=== PATIENT | male | born 1955 | race African-American/Black ===

== ENCOUNTER → 2023-12-10 10:57 | Outpatient (REF) | payer BC, SELFPAY ==
[2023-12-10 12:56] LABS: Blood Urea Nitrogen 18 mg/dl (9-20); Calcium 9.8 mg/dl (8.4-10.2); Carbon Dioxide 34 mmol/L (22-30); Chloride 99 mmol/L (98-107); Glucose 104 mg/dl (70-99); HDL Cholesterol 42 mg/dl; LDL Cholesterol, Calculated 128 mg/dl; Potassium 3.2 mmol/L (3.5-5.1); Sodium 143 mmol/L (135-145); Total Cholesterol 191 mg/dl (50-199); Triglyceride 105 mg/dl (10-149); Very Low Density Lipoprotein 21 mg/dl (0-30); eGFR > 60.00
== END ==
LOC: REG 10:57
PROVIDERS: ATTENDING PHYSICIAN Internal Medicine Cardiovascular Disease; FAMILY PHYSICIAN Family Medicine
DX: I10 Essential (primary) hypertension (principal); E78.00 Pure hypercholesterolemia, unspecified
CPT/HCPCS: 36415; 80048; 80061

== ENCOUNTER → 2024-02-13 09:20 | Outpatient (REF) | payer BC, SELFPAY ==
[2024-02-13 10:44] LABS: ALT (SGPT) 26 U/L (0-50); AST (SGOT) 37 U/L (17-59); Albumin 4.5 g/dl (3.5-5.0); Alkaline Phosphatase 68 U/L (38-126); Blood Urea Nitrogen 17 mg/dl (9-20); Calcium 9.8 mg/dl (8.4-10.2); Carbon Dioxide 35 mmol/L (22-30); Chloride 99 mmol/L (98-107); Glucose 121 mg/dl (70-99); HDL Cholesterol 39 mg/dl; LDL Cholesterol, Calculated 108 mg/dl; Potassium 3.7 mmol/L (3.5-5.1); Sodium 143 mmol/L (135-145); Total Bilirubin 0.6 mg/dl (0.2-1.3); Total Cholesterol 174 mg/dl (50-199); Total Protein 7.5 g/dl (6.3-8.2); Triglyceride 138 mg/dl (10-149); Very Low Density Lipoprotein 27 mg/dl (0-30); eGFR > 60.00
== END ==
LOC: REG 09:20
PROVIDERS: ATTENDING PHYSICIAN Internal Medicine Cardiovascular Disease
DX: E78.00 Pure hypercholesterolemia, unspecified (principal); R73.03 Prediabetes; I10 Essential (primary) hypertension
CPT/HCPCS: 36415; 80053; 80061

== ENCOUNTER 2024-04-27 12:36 | Inpatient (IN) | payer BC, SELFPAY ==
[2024-04-27 09:31] VITALS: BP 132/70
--- NOTE | 2024-04-27 10:05 | ED.GENMED ---
History of Present Illness
General
Chief Complaint: Abdominal Symptoms
Source: patient and records (Colonoscopy from 2015 with diverticulosis)
Exam Limitations: none
Time Seen by Provider: 04/27/24 09:35
Nursing documentation reviewed up to this point in time: agreed with
History of Present Illness
History of Present Illness:
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
feels little bit of weakness in his legs when he walks,. Has had a colonoscopy previously, looks like was 2014 with diverticulosis states his father had diverticulitis
Tells me he is loose stools that are bloody filling the toilet bowl
Past History
Past History
ED Past Medical History: Arrthythmia (svt macias), HTN and Other (Diverticulosis); Negative NIDDM
ED Past Surgical History: Cardiac and Orthopedic
Social History
Tobacco: Non-smoker
Alcohol: Occasional
Drug: None
Personal:
Living: with family
Employment: Employed
Phy Exam
Physical Exam
Physical Exam:
Physical Exam
General: no apparent distress, not acutely ill
Neck: No jaundice
Heart: s1/s2 regular rate and rhythm, no murmur. equal radial pulses.
Lungs: no acute respiratory distress. clear bilaterally
Abdomen: Soft not tender
Neuro: alert and oriented. no focal neurological deficits
Skin: no rash
Psychiatric: well kept. interactive and cooperative
Extremities: no edema.
Course
Orders/Labs/Results
Orders:
Orders
04/27/24 09:55
IV Insert/Care/Rem.- Treatment PRN
STOOL [C difficile Antigen & Toxins] Urgent
HAMLET Source: Feces/Stool
Specimen Description:
Date Specimen was Collected: 04/27/24
Time Specimen was Collected: 10:59
04/27/24 09:57
Iohexol [Omnipaque] See Protocol PO NOW STA
04/27/24 09:58
CT Abd/pel W Iv And Oral Contr Urgent
Comment:
Reason For Exam: bloody stool sushi
04/27/24 10:10
Type+Screen Urgent
Complete Blood Count/With Diff Urgent
Comprehensive Metabolic Panel Urgent
PTT Urgent
Prothrombin Time Urgent
04/27/24 10:20
ABO2 Urgent
BBK Wristband Number:
Associate notified that ABO2 has been ordered: [id number]
Date: 04/27/24
Time: 10:21
Unit Leader ID: [id number]
04/27/24 11:03
0.9% Sodium Chloride 1000 ml [Nss] 1,000 ml IV BOLUS
04/27/24 11:04
Stool Culture Urgent
HAMLET Source: Feces/Stool
Specimen Description:
Date Specimen was Collected: 04/27/24
Time Specimen was Collected: 10:59
Abnormal Lab Results
04/27/24
10:10
RBC 3.38 L 10^6/uL
(4.70-6.10)
Hgb 8.2 L g/dL
(13.0-18.0)
Hct 25.0 L %
(39.0-52.0)
MCV 74.0 L fL
(80.0-94.0)
MCH 24.3 L pg
(27.0-31.0)
MCHC 32.8 L g/dL
(33.0-37.0)
RDW 16.0 H %
(11.5-14.5)
Absolute Lymphs (auto) 1.1 L 10^3/uL
(1.2-3.4)
PT 15.1 H Sec
(11.4-14.6)
Potassium 3.0 L mmol/L
(3.5-5.1)
Chloride 97 L mmol/L
(98-107)
BUN 24 H mg/dl
(9-20)
Glucose 148 H mg/dl
(70-99)
Alkaline Phosphatase 35 L U/L
(38-126)
Total Protein 6.1 L g/dl
(6.3-8.2)
04/27/24 10:10
04/27/24 10:10
Vital Signs
Initial and Last Documented VS:
Initial Vital Signs
Temp Pulse Resp BP Pulse Ox
99.0 F 82 16 132/70 99
04/27/24 09:31 04/27/24 09:31 04/27/24 09:31 04/27/24 09:31 04/27/24 09:31
Last Documented Vital Signs
Temp Pulse Resp BP Pulse Ox
99.0 F 82 16 132/70 99
04/27/24 09:31 04/27/24 09:31 04/27/24 09:31 04/27/24 09:31 04/27/24 09:31
MDM/Problems Addressed
Differential Diagnosis Includes:
Diverticular bleed, infectious colitis, conceivably malignancy ischemic colitis
MDM/Problems Addressed:
Painless rectal bleeding
*Radiology
Radiology exam reviewed: radiology read reviewed
*Pulse Oximetry
Patient hypoxic: no
*Jukebox Coin [employer]or Interpretation
Rate: normal
Interpretation: normal
Heart Rate: 78
*Critical Care Note
Total Time (30-74mins, 75-104mins- exclusive of procedures): Not Applicable
Data Reviewed
Review of Other/Old Records Reveals: Operative Reports (Colonoscopy SVT ablation)
Source: patient and records
Update Note
Update Note:
Update differential appears to be diverticular versus infectious from sushi, will check stool cultures check CT H&H
11:20 AM labs are noted H&H down, passed a maroon slightly formed bowel movement,
Drinking for CAT scan at this point I believe will be prudent to admit him to the hospital, consult placed to GI hospitalist notified stool cultures have been sent lastly patient is Anglican will not take a blood transfusion
ED Attending Note
-
Portions of this chart may have been created with voice recognition software.� Occasional wrong word or��sound alike� substitutions may have occurred due to the inherent limitations of voice recognition software.
Discharge Plan
Departure
Patient Disposition: Admit
Date of Disposition: 04/27/24
Time of Disposition: :
Presentation/result/management discussed w/ accepting MD/DO: Hospitalist
Patient with high blood pressure during this ER visit?: No
Condition: Fair
Discharge Problem:
Acute lower GI bleeding
Prescriptions:
No Action
amlodipine 10 MG tablet
10 mg PO DAILY
labetalol 200 MG tablet
200 mg PO DAILY
aspirin 325 MG tablet,delayed release (DR/EC)
162.5 mg PO DAILY
valsartan [Diovan] 320 MG tablet
320 mg PO DAILY
chlorthalidone 25 MG tablet
25 mg PO DAILY
acetaminophen [Tylenol Extra Strength] 500 mg Tablet
1,000 mg PO Q6HPRN PRN (Reason: mild pain)
Prevagen
1 tab PO DAILY
loperamide [Imodium] 2 mg Capsule
2 mg PO Q6HPRN PRN (Reason: diarrhea)
meloxicam 15 mg Tablet
15 mg PO DAILY
ferrous sulfate 325 mg (65 mg iron) Tablet
325 mg PO DAILY
metformin 500 mg Tablet Extended Release 24 Hr
500 mg PO DAILY
coenzyme Q10 [CoQ-10] 100 mg Capsule
100 mg PO DAILY
rosuvastatin 5 mg Tablet
5 mg PO DAILY
Biofreeze (menthol) 5 % Gel
1 ea TOPICAL HS
Referrals:
Walt Smith DO [Family Provider] -
Interventions
Interventions:
*Risk Screen - Suicide Last Done: 04/27/24 09:31
*Neglect/Abuse Screening Last Done: 04/27/24 09:31
IQ-Ybpdfu-[id number] Assessment Last Done: 04/27/24 10:17
Discharge Date and Time
Print Language: BELGIAN
[2024-04-27 10:08] VITALS: BMI 25.5
[2024-04-27] MEDS: OMNIPAQUE 50 ML PO (10:16)
[2024-04-27 10:21] LABS: % Basophils 0.8 % (0-2); % Eosinophils 2.9 % (0-6); % Immature Granulocytes 0.2 % (0-0.5); % Lymphocytes 21.2 % (20.5-51.1); % Monocytes 7.8 % (1.7-9.3); % Neutrophils 67.1 % (42.2-75.2); Absolute Eosinophils 0.2 10^3/uL (0-0.7); Absolute Lymphocytes 1.1 10^3/uL (1.2-3.4); Absolute Monocytes 0.4 10^3/uL (0.1-0.6); Absolute Neutrophils 3.5 10^3/uL (1.4-6.5); Hemoglobin 8.2 g/dL (13.0-18.0); Mean Corp Hgb Conc. 32.8 g/dL (33.0-37.0); Mean Corpuscular Hgb 24.3 pg (27.0-31.0); Mean Platelet Volume 10.2 fL (7.4-10.4); Nucleated Red Blood Cells % 0 % (-); Platelet Count 183 10^3/uL (130-400); Red Blood Cell Count 3.38 10^6/uL (4.70-6.10); White Blood Cell Count 5.1 10^3/uL (4.8-10.8)
[2024-04-27 10:35] LABS: ALT (SGPT) 24 U/L (0-50); APTT 28.7 Sec (23.4-35.0); AST (SGOT) 26 U/L (17-59); Albumin 3.7 g/dl (3.5-5.0); Alkaline Phosphatase 35 U/L (38-126); Blood Urea Nitrogen 24 mg/dl (9-20); Calcium 8.5 mg/dl (8.4-10.2); Carbon Dioxide 30 mmol/L (22-30); Chloride 97 mmol/L (98-107); Estimated Creatinine Clearance 74 ml/min; Glucose 148 mg/dl (70-99); INR 1.14; PT 15.1 Sec (11.4-14.6); Sodium 137 mmol/L (135-145); Total Bilirubin 0.4 mg/dl (0.2-1.3); Total Protein 6.1 g/dl (6.3-8.2); eGFR > 60.00
[2024-04-27 11:43] VITALS: BP 111/66
[2024-04-27] MEDS: NSS 1000 IV (11:46)
[2024-04-27] MEDS: KCL 40 MEQ PO (11:47)
--- NOTE | 2024-04-27 11:53 | CON.GI ---
Addendum entered and electronically signed by Tana Amato DO 04/27/24 15:41:
#Hepatic Steatosis
-suspect 2/2 underlying metabolic disease
-low alkaline phosphatase-- should have this worked up as an outpatient, large ddx (: celiac, hypophosphatais, hypothyroid, multiple myeloma, milk-alkali syndrome, pernicious anemia, vit C deficiency, vit D toxicity, zinc/mag deficiency, Michael's,
starvation, radioactive heavy metals)
#Hepatic cysts
-likely benign
-recommend, nonurgent, outpatient MRI to better characterize these lesions
Original Note:
Consultation
-
Date/Time Consultation Requested: 04/27/24 12.08 pm
Date/Time Consultation Performed: 04/27/24 12.32 Pm
Requesting Provider: José Trammell MD
Performing Provider: Daya Montero MD
Reason for Consultation: Rectal bleeding
Medical History
Chief Complaint / HPI
Chief Complaint: Acute blood loss along rectal bleeding
History of Present Illness:
The patient is a 68 year old male who presented to ER this morning due having bloody diarrhea episodes since Saturday. The patient reported that he ate 3 days old sushi on Saturday and his diarrhea started the following day. The patient reported he
kept having fresh-red colored diarrhea since Saturday until today. He reported having more than 10 episodes of bloody diarrhea on Saturday and about 3 times on Saturday even he stopped eating since Saturday. The patient reported one bowel movement
today and the stool color was dark brown with a very small amount of stool. Patient denied any similar episodes before, denied abdominal/rectal pain, nausea, vomiting. He reported feeling stiffness/can be considered weakness on his legs and had
difficulty with chewing this morning.
Past Medical History
Past Medical History: Arrhythmias (svt macias), HTN and Other (Diverticulosis)
Past Surgical History: Other (Cardiac and Orthopedic)
Social History
Tobacco: Non-Smoker
Alcohol: Occasional
Drug: None
Family History
Family History: Reviewed & Not Pertinent
Allergies / Home Medications
Allergy/AdvReac Type Severity Reaction Status Date / Time
quinapril HCl [From Accupril] Allergy Swelling Verified 04/27/24 09:34
rosuvastatin calcium Allergy Pharmacy Verified 04/27/24 09:34
[From Crestor] to Review
Shellfish *RETIRED-03/04/12 Allergy Itching, Verified 04/27/24 09:34
[Shellfish] watery
eyes,
scratchy
throat
�Medication �Instructions �Recorded
amlodipine 10 mg tablet 10 mg PO DAILY 06/08/11
aspirin 325 mg tablet,delayed 162.5 mg PO DAILY 12/29/14
release
labetalol 200 mg tablet 200 mg PO DAILY 12/29/14
valsartan 320 mg tablet (Diovan) 320 mg PO DAILY 12/29/14
Prevagen 1 tab PO DAILY 05/25/21
acetaminophen 500 mg tablet 1,000 mg PO Q6HPRN PRN mild pain 05/25/21
(Tylenol Extra Strength)
chlorthalidone 25 mg tablet 25 mg PO DAILY 05/25/21
coenzyme Q10 100 mg capsule 100 mg PO DAILY 04/27/24
(CoQ-10)
ferrous sulfate 325 mg (65 mg 325 mg PO DAILY 04/27/24
iron) tablet
loperamide 2 mg capsule 2 mg PO Q6HPRN PRN diarrhea 04/27/24
meloxicam 15 mg tablet 15 mg PO DAILY 04/27/24
menthol 5 % topical gel (Biofreeze 1 ea topical HS right shoulder 04/27/24
(menthol))
metformin 500 mg tablet,extended 500 mg PO DAILY 04/27/24
release 24 hr
rosuvastatin 5 mg tablet 5 mg PO DAILY 04/27/24
Review of Systems
-
All other systems: A 12 pt ROS was Negative except as stated above in HPI
Abdomen/GI: Reports Other (See HPI )
Vital Signs
Temp Pulse Resp BP Pulse Ox
99.0 F 76 16 111/66 97
04/27/24 09:31 04/27/24 11:43 04/27/24 11:43 04/27/24 11:43 04/27/24 11:43
Physical Exam
Exam
General: Well Developed, Well Nourished and No Apparent Distress
HEENT: Normocephalic and Anicteric
Respiratory: Clear
Cardiac: S1/S2 and Regular Rhythm
GI: Soft, Non Tender and Other (some discomfort on upper abdominal area)
Musculoskeletal: No Clubbing, No Cyanosis and No Edema
Skin: Warm and Dry
Neuro: Awake, Alert, Oriented and AO x 3
Psych: Calm
Results
WBC 5.1 10^3/uL (4.8-10.8) 04/27/24 10:10
Hgb 8.2 g/dL (13.0-18.0) L 04/27/24 10:10
Hct 25.0 % (39.0-52.0) L 04/27/24 10:10
MCV 74.0 fL (80.0-94.0) L 04/27/24 10:10
Plt Count 183 10^3/uL (130-400) 04/27/24 10:10
Absolute Neuts (auto) 3.5 10^3/uL (1.4-6.5) 04/27/24 10:10
PT 15.1 Sec (11.4-14.6) H 04/27/24 10:10
INR 1.14 04/27/24 10:10
APTT 28.7 Sec (23.4-35.0) 04/27/24 10:10
Sodium 137 mmol/L (135-145) 04/27/24 10:10
Potassium 3.0 mmol/L (3.5-5.1) L 04/27/24 10:10
Chloride 97 mmol/L (98-107) L 04/27/24 10:10
Carbon Dioxide 30 mmol/L (22-30) 04/27/24 10:10
BUN 24 mg/dl (9-20) H 04/27/24 10:10
Creatinine 1.0 mg/dL (0.7-1.3) 04/27/24 10:10
Calcium 8.5 mg/dl (8.4-10.2) 04/27/24 10:10
Total Bilirubin 0.4 mg/dl (0.2-1.3) 04/27/24 10:10
AST 26 U/L (17-59) 04/27/24 10:10
ALT 24 U/L (0-50) 04/27/24 10:10
Alkaline Phosphatase 35 U/L (38-126) L 04/27/24 10:10
Diagnostic Image Results:
Abd/Pelvis CT 04/27/24:
Prior GI Procedures:
EGD:
Patient reported having an endoscopy years ago due acid reflux and does not remember the time/hospital
Colonoscopy: 02/11/15
Findings:
Two sessile polyps were found in the rectum. The polyps were small in
size. These were biopsied with a cold large-capacity forceps for
histology.
Many small and large-mouthed diverticula were found in the entire colon.
No additional abnormalities were found on retroflexion.
No other significant abnormalities were identified in a careful
examination of the remainder of the colon.
The terminal ileum appeared normal.
Impression: - Two small polyps in the rectum. Biopsied.
- Mild dverticulosis in the entire examined colon.
- The examined portion of the ileum was normal.
Assessment / Plan
-
Impression: The patient is a 68 years old male presented to ER today complaining from bloody stools starting from Saturday.He report no similar previous episode and reports his diarrhea started after he consumed 3 day-waited sushi. His bowel
movements were fresh-red colored with a small amount of stool until today. This morning he had dark colored a very small amount of stool reporting he did not eat anything since Saturday. He has been on aspirin and meloxicam which he took both of them
this morning. The patient had his colonoscopy in 2014 showing many small and large-mouthed diverticula in the entire colon.
Note: The patient is a Jehovah Witness and declined blood product in spite of detailed conversation about consequences of such decline. The patient is AAOx3 and capable of making his own medical decisions.
Assessment/Plan:
#Acute Blood Loss due possibly lower GI bleeding likely due diverticulosis vs enterocolitis vs polyps
-Hgb is 8.2 which is lower from his baseline (12.0)
-Trend hgb Q8 H/ Patient declines Blood transfusion due his zoroastrianism
-Hold ASA and avoid NSAI
-Susceptible for Enterocolitis due consuming stale/raw food (sushi): Stool culture/stool WBC/C-diff was ordered
-Recently started stiffness on legs this morning-GBS? Neurology cons can be considered.
-Abd/Pelvis CT: Moderate diverticular disease within the descending and sigmoid colon
-Colonoscopy/endoscopy can be considered if patient has ongoinf bleeding
-Low possibility for upper GI bleeding /hx of acid reflux/one episode of melena this morning/continue PPI drop
-
-
-
Thank you for consultation and allowing me to participate in the patient's care. Please call the personalized living manager GI physician during the after hours with any questions or concerns.
--- NOTE | 2024-04-27 12:16 | HPS.HSE ---
Family Physician
-
Family Physician: Walt Smith
Chief Complaint
-
rectal bleeding
History of Present Illness
68yo M with PMHx of HTN, OUMOU, DM, HLD came with persistent red blood per rectum with diarrhea, just started to improve to maroon solid stool today. Found anemia to 8.2, Patient ate sushi before diarrhea occured. Hemodynamically stable. 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
Jehovah Witness and declined blood product in spite of detailed conversation about consequences of such decline. was not supportive of his decision, however patient is AAOx3 and competent to make his own medical decisions.
Medical History
Past Medical History
Past Medical History: Reports Other
Additional Past Medical History:
See HPI
Past Surgical History: Reports None
Social History
Tobacco: Non-smoker
Alcohol: Occasional
Drug: None
Family History
Family History: Not pertinent
Allergies / Home Medications
Allergies reflects when Allergies were last updated in [facility].
Home Medications with original date entered in [facility]
Allergy/Medication List:
Allergies
Allergy/AdvReac Type Severity Reaction Status Date / Time
quinapril HCl [From Accupril] Allergy Swelling Verified 04/27/24 09:34
rosuvastatin calcium Allergy Pharmacy Verified 04/27/24 09:34
[From Crestor] to Review
Shellfish *RETIRED-03/04/12 Allergy Itching, Verified 04/27/24 09:34
[Shellfish] watery
eyes,
scratchy
throat
Home Medications
amlodipine 10 mg tablet 10 mg PO DAILY 06/08/11
aspirin 325 mg tablet,delayed release 162.5 mg PO DAILY 12/29/14
labetalol 200 mg tablet 200 mg PO DAILY 12/29/14
valsartan 320 mg tablet (Diovan) 320 mg PO DAILY 12/29/14
Prevagen 1 tab PO DAILY 05/25/21
acetaminophen 500 mg tablet (Tylenol Extra Strength) 1,000 mg PO Q6HPRN PRN mild pain 05/25/21
chlorthalidone 25 mg tablet 25 mg PO DAILY 05/25/21
coenzyme Q10 100 mg capsule (CoQ-10) 100 mg PO DAILY 04/27/24
ferrous sulfate 325 mg (65 mg iron) tablet 325 mg PO DAILY 04/27/24
loperamide 2 mg capsule 2 mg PO Q6HPRN PRN diarrhea 04/27/24
meloxicam 15 mg tablet 15 mg PO DAILY 04/27/24
menthol 5 % topical gel (Biofreeze (menthol)) 1 ea topical HS right shoulder 04/27/24
metformin 500 mg tablet,extended release 24 hr 500 mg PO DAILY 04/27/24
rosuvastatin 5 mg tablet 5 mg PO DAILY 04/27/24
Review of Systems
-
History Source: Patient
A 12 point ROS was completed and negative except as noted: Yes
Abdomen/GI: Reports See HPI
Physical Exam
Vital Signs
Vital Signs
Temp Pulse Resp BP Pulse Ox
99.0 F 76 16 111/66 97
04/27/24 09:31 04/27/24 11:43 04/27/24 11:43 04/27/24 11:43 04/27/24 11:43
Physical Exam
General: No Apparent Distress
HEENT: NormoCephalic, Anicteric and Moist mucous membranes
Respiratory: Clear; No Wheezes, Rales or Rhonchi
Cardiac: S1/S2 and Regular Rhythm; No Murmur
GI: Soft, Non Tender, Non Distended and Normal Bowel Sounds
Musculoskeletal: No Clubbing, No Cyanosis and No Edema
Skin: Warm; No Dry or Rash
Neuro: Awake, Alert, Oriented and AO x 3
Psych: Calm
Laboratory Results
-
04/27/24 10:10
04/27/24 10:10
Laboratory Results
PT 15.1 Sec (11.4-14.6) H 04/27/24 10:10
INR 1.14 04/27/24 10:10
APTT 28.7 Sec (23.4-35.0) 04/27/24 10:10
Total Bilirubin 0.4 mg/dl (0.2-1.3) 04/27/24 10:10
AST 26 U/L (17-59) 04/27/24 10:10
ALT 24 U/L (0-50) 04/27/24 10:10
Alkaline Phosphatase 35 U/L (38-126) L 04/27/24 10:10
Data Reviewed
-
Lab Data: Labs Reviewed by me
Impression/Plan
-
A/P:
#Acute blood loss anemia 2/2 hematochezia
#OUMOU
check anemia w/u
serial H&H, no transfusion consent placed
Since hemodynamically stable- will avoid hemodilution with IVF - use boluses of BP<100/50
Supportive low rate RL infusion while NPO
GI cosnult
CT abd/pelvis pending at the time of admission.
Stop ASA as patient without [place], stents or CVA history
avoid NSAIDs and AC
PPI drip since patient was on meloxicam
#Essential HT
Hold BP meds
#Hypokalemia
2/2 diarrhea
replete and follow
check mg
#Diarrhea, possibly gastroenteritis
No abd pain
CT abd pending
Improving
CHeck C.diff
#HLD
cont home meds
#DM type w with neuropathy
hold Metformin
Accuchecks, Insulin SS, DM diet, when possible
#DJD
stop meloxicam
DVT ppx on SCDs
Full code
I have spent at least 78min reviewing chart, test results, communication with consultants and direct patient care
[2024-04-27 12:47] LABS: Magnesium 1.6 mg/dl (1.6-2.3)
[2024-04-27] MEDS: PROTONIX IV 80 MG IV (13:31)
[2024-04-27] MEDS: PROTONIX 100 IV (13:33)
[2024-04-27] MEDS: NSS (PRESERVATIVE FREE) 20 ML IV (13:33)
[2024-04-27] MEDS: MAGNESIUM SULFATE 50 IV (13:34)
--- NOTE | 2024-04-27 14:18 | EDRN ---
Report tubed 328-1 bed not ready.
[2024-04-27 15:39] VITALS: BP 112/65
[2024-04-27] MEDS: LR 1000 IV (16:16)
[2024-04-27] MEDS: TYLENOL 650 MG PO ×2 (16:17→21:05)
[2024-04-27 16:30] LABS: Glucose - Point of Care 110 mg/dl (70-99)
--- NOTE | 2024-04-27 17:43 | PTCARENOTE ---
pt arrived to unit at 1525 via stretcher from ED, Protonix gtt running. Pt ambulated from hallway to bed w/out assist. VSS. admissions questions and assessment completed by this nurse. pt placed on tele #6 running NSR. pt has outstanding stool
cultures ordered. hat placed in toilet for specimen and pt educated to call when he has BM. pt AAOx3, oriented to unit, call german in reach. LR @60ml/hr started, pt given Tylenol for R shoulder pain. pt states taking Tylenol throughout the day to
help with R shoulder, supposed to have procedure/operation in the next few months.
[2024-04-27 19:20] VITALS: BP 126/75
[2024-04-27 20:08] LABS: Iron 152 ug/dl (49-181); LDH 141 U/L (120-246)
[2024-04-27 20:17] LABS: Percent Saturation 47 % (20-50); Total Iron Binding Capacity 322 ug/dl (261-462)
[2024-04-27 20:59] LABS: Ferritin 56.8 ng/ml (17.9-464.0)
[2024-04-27] MEDS: NSS (PRESERVATIVE FREE) 10 ML IV (21:06)
[2024-04-27] MEDS: PROTONIX IV 40 MG IV (21:06)
[2024-04-27 21:31] LABS: Folate > 20.0 ng/ml (2.76-20); Vitamin B12 597 pg/ml (239-931)
[2024-04-27 23:20] VITALS: BP 124/65
[2024-04-28] VITALS (24 sets, daily range): BP systolic 88–130; BP diastolic 52–92; PULSE 94–104
[2024-04-28 00:06] LABS: Glucose - Point of Care 117 mg/dl (70-99)
[2024-04-28] MEDS: TYLENOL 650 MG PO (04:51)
[2024-04-28] MEDS: LR 1000 IV (05:26)
[2024-04-28 05:59] LABS: Glucose - Point of Care 124 mg/dl (70-99)
[2024-04-28 06:30] LABS: % Basophils 0.5 % (0-2); % Immature Granulocytes 0.3 % (0-0.5); % Lymphocytes 33.8 % (20.5-51.1); % Monocytes 8.5 % (1.7-9.3); % Neutrophils 52.9 % (42.2-75.2); Absolute Eosinophils 0.2 10^3/uL (0-0.7); Absolute Lymphocytes 1.4 10^3/uL (1.2-3.4); Absolute Monocytes 0.3 10^3/uL (0.1-0.6); Absolute Neutrophils 2.1 10^3/uL (1.4-6.5); Hematocrit 24.8 % (39.0-52.0); Hemoglobin 8.1 g/dL (13.0-18.0); Mean Corp Hgb Conc. 32.7 g/dL (33.0-37.0); Mean Corpuscular Hgb 24.3 pg (27.0-31.0); Mean Corpuscular Volume 74.5 fL (80.0-94.0); Mean Platelet Volume 10.1 fL (7.4-10.4); Nucleated Red Blood Cells % 0 % (-); Platelet Count 189 10^3/uL (130-400); Red Blood Cell Count 3.33 10^6/uL (4.70-6.10); Red Cell Dist. Width 16.4 % (11.5-14.5)
[2024-04-28 06:55] LABS: ALT (SGPT) 24 U/L (0-50); AST (SGOT) 30 U/L (17-59); Albumin 3.8 g/dl (3.5-5.0); Alkaline Phosphatase 39 U/L (38-126); Blood Urea Nitrogen 18 mg/dl (9-20); Calcium 8.8 mg/dl (8.4-10.2); Carbon Dioxide 27 mmol/L (22-30); Chloride 103 mmol/L (98-107); Estimated Creatinine Clearance 74 ml/min; Glucose 105 mg/dl (70-99); Sodium 142 mmol/L (135-145); Total Bilirubin 0.5 mg/dl (0.2-1.3); Total Protein 6.4 g/dl (6.3-8.2); eGFR > 60.00
[2024-04-28 06:59] LABS: Potassium 3.3 mmol/L (3.5-5.1)
[2024-04-28 07:44] LABS: Hepatitis C Antibody Negative (Negative)
[2024-04-28] MEDS: KCL 40 MEQ PO (07:55)
[2024-04-28] MEDS: PROTONIX IV 40 MG IV ×2 (07:56→21:19)
[2024-04-28] MEDS: CRESTOR 5 MG PO (07:56)
[2024-04-28] MEDS: NSS (PRESERVATIVE FREE) 10 ML IV ×2 (07:56→21:19)
--- NOTE | 2024-04-28 09:38 | W.PN.GI.CBS2 ---
Today's Communication / Plan
-
-Abd/Pelvis CTA
-Clear Liquid diet
Assessment / Plan
-
Impression: The patient is a 68 years old male presented to ER on 04/27/24 complaining from bloody stools starting from Saturday .He reported no similar previous episode and reported his diarrhea started after he consumed 3 day-waited sushi. His
bowel movements were fresh-red colored with a small amount of stool until yesterday. Yesterday morning he had dark colored a very small amount of stool reporting he did not eat anything since Saturday. This morning he had 2 bloody bowel movements in
large amounts. He has been on aspirin and meloxicam which he took both of them yesterday morning. The patient had his colonoscopy in 2014 showing many small and large-mouthed diverticula in the entire colon.
Note: The patient is a Jehovah Witness and declined blood product in spite of detailed conversation about consequences of such decline on 04/27/24. This morning he was with his and reported he is agreeing having blood transfusion if needed. The
primary care team was informed about it.
Assessment/Plan:
#Acute Blood Loss due possibly lower GI bleeding likely due diverticulosis vs enterocolitis
-Hgb is 8.1 which is lower from his baseline (12.0) and had 2 Bloody BM after his was drawn
-Trend hgb Q8 H/: Patient agrees Blood transfusion if needed
-Blood transfusion is recommended to keep hgb >7
-Abd/Pelvis CTA was ordered due last 2 bloody BM this morning
-Started on clear liquid diet
-Hold ASA and avoid NSAI
-IV iron can be stopped due patient`s agreement to blood transfusion this morning.
-Susceptible for Enterocolitis due consuming stale/raw food (sushi): Stool culture:pending /stool WBC: Rare/ C-diff :toxin negative-antigen positive
-Recently started stiffness on legs yesterday: Denies any weakness, numbness this morning
-Abd/Pelvis CT 04/27/24: Moderate diverticular disease within the descending and sigmoid colon
-Colonoscopy/endoscopy can be considered if patient has ongoing bleeding
-Low possibility for upper GI bleeding /hx of acid reflux/one episode of melena this morning/continue PPI IV BID
-
Subjective
Subjective
Date of Service: April 28, 2024
The patient was seen in his bed with his at bedside. He reported having 2 bloody bowel movements this morning. Denies nausea, vomiting, pain, tenderness on abdominal area.
Objective
Data Reviewed
Laboratory Data:
Laboratory Results
04/28/24 05:36
Laboratory Results
PT 15.1 Sec (11.4-14.6) H 04/27/24 10:10
INR 1.14 04/27/24 10:10
APTT 28.7 Sec (23.4-35.0) 04/27/24 10:10
Magnesium 1.6 mg/dl (1.6-2.3) 04/27/24 10:10
Total Bilirubin 0.5 mg/dl (0.2-1.3) 04/28/24 05:36
AST 30 U/L (17-59) 04/28/24 05:36
ALT 24 U/L (0-50) 04/28/24 05:36
Alkaline Phosphatase 39 U/L (38-126) 04/28/24 05:36
Vital Signs and I&O:
Vital Signs
Temp Pulse Resp BP Pulse Ox
98.5 F 76 16 108/68 97
04/28/24 08:07 04/28/24 08:07 04/28/24 08:07 04/28/24 08:07 04/28/24 08:07
Physical Exam
Physical Exam
HEENT: Anicteric and Moist mucous membranes
Cardiology: Normal Sinus Rhythm, S1 and S2
Pulmonary: Clear
GI: Soft, Non Distended and Non Tender
Extremities: No Edema
Neuro: Non Focal
[2024-04-28 09:49] LABS: Hematocrit 23.5 % (39.0-52.0); Hemoglobin 7.6 g/dL (13.0-18.0)
--- NOTE | 2024-04-28 10:22 | W.PN.HOSP.TC ---
Today's Communication/Plan
-
consent signed - transfuse 2 units PRBC
Increase IVF to 125ml/h
follow CTA
Transfer to IMU
Assessment / Plan
Assessment / Plan
68yo M with PMHx of HTN, OUMOU, DM, HLD came with persistent red blood per rectum with diarrhea, just started to improve to maroon solid stool today. Found anemia to 8.2, Patient ate sushi before diarrhea occured. Hemodynamically stable. 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
A/P:
A/P:
#Acute blood loss symptomatic anemia 2/2 hematochezia
#DIverticulosis
#OUMOU
check anemia w/u
serial H&H, transfuse for symptomatic anemia
IVF
GI cosnult
CT abd/pelvis pending at the time of admission.
Stop ASA as patient without [place], stents or CVA history
avoid NSAIDs and AC
PPI drip since patient was on meloxicam
#Essential HT
Hold BP meds
#Hypokalemia
2/2 diarrhea
replete and follow
check mg
#Diarrhea, possibly gastroenteritis
No abd pain
CT abd without diverticulitis
#HLD
cont home meds
#DM type w with neuropathy
hold Metformin
Accuchecks, Insulin SS, DM diet, when possible
#DJD
stop meloxicam
#Fatty liver
#Liver cysts
outpatient follow up with GI
DVT ppx on SCDs
Full code
I have spent at least 58min reviewing chart, test results, communication with consultants and direct patient care
Anticipated Discharge: > 48 hours
Subjective/Interval History
-
Date of Service: April 28, 2024
Objective Data
-
Labs:
Laboratory Results
04/28/24 04/28/24 04/28/24
05:36 05:36 05:36
WBC 4.0 L
Hgb Cancelled 8.1 L
Hct Cancelled 24.8 L
Plt Count 189
Sodium 142
Potassium 3.3 L
Chloride 103
Carbon Dioxide 27
BUN 18
Creatinine 1.0
Glucose 105 H
Calcium 8.8
Total Bilirubin 0.5
AST 30
ALT 24
Alkaline Phosphatase 39
04/28/24 04/28/24 04/28/24
07:27 09:32 15:27
WBC
Hgb Cancelled 7.6 L Pending
Hct Cancelled 23.5 L Pending
Plt Count
Sodium
Potassium
Chloride
Carbon Dioxide
BUN
Creatinine
Glucose
Calcium
Total Bilirubin
AST
ALT
Alkaline Phosphatase
04/28/24
23:27
WBC
Hgb Pending
Hct Pending
Plt Count
Sodium
Potassium
Chloride
Carbon Dioxide
BUN
Creatinine
Glucose
Calcium
Total Bilirubin
AST
ALT
Alkaline Phosphatase
Vital Signs:
Vital Signs
Temp Pulse Resp BP Pulse Ox
98.5 F 76 16 108/68 97
04/28/24 08:07 04/28/24 08:07 04/28/24 08:07 04/28/24 08:07 04/28/24 08:07
Review of Systems
-
History Source: Patient
All other systems: Reviewed and negative
Neuro: Reports Dizzy
Physical Exam
-
General: Comfortable
HEENT: Moist Mucous Membranes
Skin: Warm
Neuro: Awake, Alert, Oriented and AO x 3
Psych: Calm
[2024-04-28 11:47] LABS: Glucose - Point of Care 147 mg/dl (70-99)
--- NOTE | 2024-04-28 12:28 | CM ---
CM following re: discharge planning.
Reviewed pt's chart, met with pt and pt's spouse at bedside.
Pt is a 68 year old male, admitted with primary dx of GIB.
Pt reports he lives with spouse and 20 year old son in a 2SH, 3 steps to enter, has 2 supportive children. 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
PCP: Walt Smith
Pharmacy: [facility].
D/C plan: home with anticipated no needs. Spouse to transport at discharge.
CM will follow with discharge plan updates as hospitalization progresses
--- NOTE | 2024-04-28 14:00 | PTCARENOTE ---
Received patient from [facility]. Patient AAOx3, able to ambulate to bed. Lungs clear,sp02 99% RA, SR on monitor HR 80's, abdomen with hyperactive sounds. Upon arrival patient had moderate sized bloody stool on commode. Oriented patient
to room and discussed plan of receiving PRBC's.
--- NOTE | 2024-04-28 14:26 | W.PN.UPDATE ---
Update Note
Progress Note Update
Pt with continued bleeding. CTA no SB bleed, limited colon with recent oral contrast, diverticulosis, fatty liver. renal and hepatic cysts. pt agreeable for colonoscopy in am. Dr. Amato updated daughter and I updated family at bedside.
Getting transfusion now. OP follow up for fatty liver.
[2024-04-28 14:27] LABS: Glucose - Point of Care 151 mg/dl (70-99)
[2024-04-28] MEDS: NULYTELY SOLUTION 4 LITERS PO (17:39)
--- NOTE | 2024-04-28 18:00 | PTCARENOTE ---
Patient received 2 units of PRBC's without incident. Started on prep for colonoscopy tomorrow.
[2024-04-28 18:01] LABS: Glucose - Point of Care 126 mg/dl (70-99)
[2024-04-28 21:05] LABS: Glucose - Point of Care 121 mg/dl (70-99)
[2024-04-28 22:03] LABS: Hemoglobin 8.8 g/dL (13.0-18.0)
[2024-04-29] VITALS (8 sets, daily range): BP systolic 118–136; BP diastolic 59–88
[2024-04-29] MEDS: LR 1000 IV ×3 (01:39→18:27)
[2024-04-29] MEDS: LR IV (01:47)
[2024-04-29 05:37] LABS: Glucose - Point of Care 122 mg/dl (70-99)
[2024-04-29 05:39] LABS: Hematocrit 24.9 % (39.0-52.0); Hemoglobin 8.3 g/dL (13.0-18.0)
--- NOTE | 2024-04-29 05:43 | PTCARENOTE ---
Patient did not sleep much. Multiple brown/black/maroon liquid stools d/t colonoscopy prep. Pt was tolerating the prep until he became nauseous around midnight. IVF continue. Up ad stacey to [facility]. Denies any dizziness or lightheadedness. Adequate urine
output. NSR/ST on tele monitor. Call german within reach. Pt calls appropriately.
[2024-04-29] MEDS: CRESTOR 5 MG PO (08:51)
[2024-04-29] MEDS: NSS (PRESERVATIVE FREE) 10 ML IV ×2 (08:51→21:15)
[2024-04-29] MEDS: PROTONIX IV 40 MG IV ×2 (08:51→21:14)
--- NOTE | 2024-04-29 11:32 | W.PN.HOSP.TC ---
Today's Communication/Plan
-
Monitoring 24h for further bleeding and Hgb, if stable - plan to d/c in AM
Restart Valsartan
Assessment / Plan
Assessment / Plan
68yo M with PMHx of HTN, OUMOU, DM, HLD came with persistent red blood per rectum with diarrhea, just started to improve to maroon solid stool today. Found anemia to 8.2, Patient ate sushi before diarrhea occured. Hemodynamically stable. 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
[employer] and declined blood product initially, but on the next day after admission due to continued bleeding and dizziness - was agreeable. S/P 2 units PRBC on 04/28/24, s/p colonoscopy on 04/29/24 with no signs of bleeding, single polyp
removal but severe diverticulosis. Suspected diverticular bleed that resolved.
A/P:
#Acute blood loss symptomatic anemia 2/2 hematochezia
#Diverticulosis
#OUMOU
check anemia w/u
serial H&H, transfuse for symptomatic anemia
IVF
GI consult: s/p colonoscopy on 04/29/24 with no signs of bleeding, single polyp removal but severe diverticulosis. Suspected diverticular bleed that resolved
CT abd/pelvis pending at the time of admission.
Stop ASA as patient without VT, stents or CVA history
avoid NSAIDs and AC
PPI drip since patient was on meloxicam
#Essential HTN
Restart Valsartan only
#Hypokalemia
2/2 diarrhea
replete and follow
check mg
#Diarrhea, possibly gastroenteritis
No abd pain
CT abd without diverticulitis
#HLD
cont home meds
#DM type w with neuropathy
hold Metformin
Accuchecks, Insulin SS, DM diet, when possible
#DJD
stop meloxicam
#Fatty liver
#Liver cysts
outpatient follow up with GI
DVT ppx on SCDs
Full code
I have spent at least 38min reviewing chart, test results, communication with consultants and direct patient care
Anticipated Discharge: Within 24 hours
Subjective/Interval History
-
Date of Service: April 29, 2024
Objective Data
-
Labs:
Laboratory Results
04/29/24
05:24
Hgb 8.3 L
Hct 24.9 L
Vital Signs:
Vital Signs
Temp Pulse Resp BP Pulse Ox
98.9 F 77 17 123/74 100
04/29/24 07:49 04/29/24 09:38 04/29/24 08:00 04/29/24 09:38 04/29/24 09:38
I&O
04/28/24 04/29/24 04/30/24
06:59 06:59 06:59
Intake Total 1850 / 1850 480 / 480
Output Total 1904 / 1904 425 / 425
Balance -55 / -55 55 / 55
Review of Systems
-
History Source: Patient
All other systems: Reviewed and negative
Physical Exam
-
General: No Apparent Distress
HEENT: Normocephalic
Cardiac: Regular Rhythm
GI: Soft, Nontender and Nondistended
Neuro: Awake, Alert, Oriented and AO x 3
Psych: Calm
[2024-04-29] MEDS: FERRLECIT 110 MG IV (11:46)
[2024-04-29 11:57] LABS: Glucose - Point of Care 110 mg/dl (70-99)
[2024-04-29] MEDS: DIOVAN 320 MG PO (13:16)
--- NOTE | 2024-04-29 14:01 | PTCARENOTE ---
Rec'd pt this AM. completed colonoscopy procedure. Sitting in bedside chair, ate lunch. reports feeling much better. vital signs stable. spouse at bedside. downgraded to M/S. Will be transferred to 3 this afternoon
--- NOTE | 2024-04-29 15:51 | CM ---
Patient with Dx anemia who is s/p transfusions. Colonoscopy today. Low residue diet. Per nursing; activity level - self.
Met with patient and ; patient states he is feeling well and hoping to go home soon. will provide transport home.
No CM d/c needs identified.
Plan home.
[2024-04-29 18:27] LABS: Glucose - Point of Care 149 mg/dl (70-99)
[2024-04-29] MEDS: TYLENOL 650 MG PO (21:23)
[2024-04-29 22:06] LABS: Glucose - Point of Care 146 mg/dl (70-99)
[2024-04-30 06:26] LABS: Hematocrit 25.2 % (39.0-52.0); Hemoglobin 8.3 g/dL (13.0-18.0)
[2024-04-30 07:10] VITALS: BP 116/69
[2024-04-30 08:00] LABS: Glucose - Point of Care 102 mg/dl (70-99)
[2024-04-30] MEDS: NSS (PRESERVATIVE FREE) 10 ML IV (08:47)
[2024-04-30] MEDS: CRESTOR 5 MG PO (08:47)
[2024-04-30] MEDS: PROTONIX IV 40 MG IV (08:47)
[2024-04-30] MEDS: DIOVAN 320 MG PO (08:56)
[2024-04-30] MEDS: TYLENOL 650 MG PO (09:03)
--- NOTE | 2024-04-30 09:14 | W.PN.HOSP.TC ---
Today's Communication/Plan
-
dc
Assessment / Plan
Assessment / Plan
68yo M with PMHx of HTN, OUMOU, DM, HLD came with persistent red blood per rectum with diarrhea, just started to improve to maroon solid stool today. Found anemia to 8.2, Patient ate sushi before diarrhea occured. Hemodynamically stable. 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
[employer] and declined blood product initially, but on the next day after admission due to continued bleeding and dizziness - was agreeable. S/P 2 units PRBC on 04/28/24, s/p colonoscopy on 04/29/24 with no signs of bleeding, single polyp
removal but severe diverticulosis. Suspected diverticular bleed that resolved. Outpatient follow up for fatty liver, also started iron. Antihypertensives were adjusted - Chlorthalidone, Amlodipine, Labetalol stopped since blood pressure remained in
normal limits on Valsartan only. Patient to follow up with his PCP for further mgmt. Daily BP measurement encouraged. Hgb stable, no further bleeding, medically stable for d/c
A/P:
#Acute blood loss symptomatic anemia 2/2 hematochezia
#Diverticulosis
#OUMOU
serial H&H, transfuse for symptomatic anemia
Iron
GI consult: s/p colonoscopy on 04/29/24 with no signs of bleeding, single polyp removal but severe diverticulosis. Suspected diverticular bleed that resolved
Stop ASA as patient without ND, stents or CVA history
avoid NSAIDs and AC
PPI drip since patient was on meloxicam
#Essential HTN
Restart Valsartan only
#Hypokalemia
2/2 diarrhea
replete and follow
check mg
#Diarrhea, possibly gastroenteritis
No abd pain
CT abd without diverticulitis
#HLD
cont home meds
#DM type w with neuropathy
hold Metformin
Accuchecks, Insulin SS, DM diet, when possible
#DJD
stop meloxicam
#Fatty liver
#Liver cysts
outpatient follow up with GI
DVT ppx on SCDs
Full code
I have spent at least 38min reviewing chart, test results, communication with consultants and direct patient care
Anticipated Discharge: Today
Subjective/Interval History
-
Date of Service: April 30, 2024
Objective Data
-
Labs:
Laboratory Results
04/30/24
05:36
Hgb 8.3 L
Hct 25.2 L
Vital Signs:
Vital Signs
Temp Pulse Resp BP Pulse Ox
98.7 F 70 17 121/82 99
04/30/24 07:10 04/30/24 07:10 04/30/24 07:10 04/30/24 08:56 04/30/24 07:10
I&O
04/29/24 04/30/24 05/01/24
06:59 06:59 06:59
Intake Total 1850 / 1850 1100 / 1100
Output Total 1905 / 1905 785 / 785
Balance -55 / -55 315 / 315
Review of Systems
-
History Source: Patient
All other systems: Reviewed and negative
Physical Exam
-
General: No Apparent Distress
HEENT: Normocephalic
Respiratory: Clear to Auscultation
Neuro: Awake, Alert, Oriented and AO x 3
Psych: Calm
--- NOTE | 2024-04-30 09:17 | W.DCSUMMARY ---
Discharge Summary
Discharge Data
Date of Admission: 04/27/24
Date of Discharge: 04/30/24
-
Pending Results: No
Hospital Course
68yo M with PMHx of HTN, OUMOU, DM, HLD came with persistent red blood per rectum with diarrhea, just started to improve to maroon solid stool today. Found anemia to 8.2, Patient ate sushi before diarrhea occured. Hemodynamically stable. 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
[employer] and declined blood product initially, but on the next day after admission due to continued bleeding and dizziness - was agreeable. S/P 2 units PRBC on 04/28/24, s/p colonoscopy on 04/29/24 with no signs of bleeding, single polyp
removal but severe diverticulosis. Suspected diverticular bleed that resolved. Outpatient follow up for fatty liver, also started iron. Antihypertensives were adjusted - Chlorthalidone, Amlodipine, Labetalol stopped since blood pressure remained in
normal limits on Valsartan only. Patient to follow up with his PCP for further mgmt. Daily BP measurement encouraged. Hgb stable, no further bleeding, medically stable for d/c
I have spent at least 38min reviewing chart, test results, communication with consultants and direct patient care
Patient was managed for:
#Acute blood loss symptomatic anemia 2/2 hematochezia
#Diverticulosis
#OUMOU
#Essential HTN
#Hypokalemia
#Diarrhea, possibly gastroenteritis
#HLD
#DM type w with neuropathy
#DJD
#Fatty liver
#Liver cysts
Discharge Plan
-
Patient Disposition: Home (Routine Discharge)
Discharge Diagnosis/Procedures: Diverticular bleed
Diet: Other diet
Additional Diets: High fiber
Activity: As tolerated
Driving Restrictions: As prior to admission
Activity Restrictions/Additional Instructions:
MNeasure blood preasure every AM, bring log to your family doctor, soince your blood pressure regimen was adjusted: Chlorthalidone, Labetalol were stopped
Referrals:
Walt Smith DO [Family Provider] - in one week (anemia management, blood pressure management)
Tana Amato DO [Active] - (OP follow up for fatty liver noted on CT)
Prescriptions:
New
Metamucil 3.4 gram/5.4 gram powder
1 tbsp PO DAILY Qty: 660 0RF
ferrous sulfate 325 mg (65 mg iron) tablet,delayed release (DR/EC)
325 mg PO DAILY Qty: 30 0RF
docusate sodium [Colace] 100 mg capsule
100 mg PO BID Qty: 60 0RF
polyethylene glycol 3350 [Miralax] 17 gram/dose powder
4 g PO DAILYPRN PRN (Reason: Constipation) Qty: 119 0RF
pantoprazole 40 mg tablet,delayed release (DR/EC)
40 mg PO DAILY Qty: 30 0RF
Continued
valsartan [Diovan] 320 MG tablet
320 mg PO DAILY
acetaminophen [Tylenol Extra Strength] 500 mg Tablet
1,000 mg PO Q6HPRN PRN (Reason: mild pain)
Prevagen
1 tab PO DAILY
metformin 500 mg Tablet Extended Release 24 Hr
500 mg PO DAILY
coenzyme Q10 [CoQ-10] 100 mg Capsule
100 mg PO DAILY
rosuvastatin 5 mg Tablet
5 mg PO DAILY
Biofreeze (menthol) 5 % Gel
1 ea TOPICAL HS
Discontinued
amlodipine 10 MG tablet
10 mg PO DAILY
labetalol 200 MG tablet
200 mg PO DAILY
aspirin 325 MG tablet,delayed release (DR/EC)
162.5 mg PO DAILY
chlorthalidone 25 MG tablet
25 mg PO DAILY
loperamide [Imodium] 2 mg Capsule
2 mg PO Q6HPRN PRN (Reason: diarrhea)
meloxicam 15 mg Tablet
15 mg PO DAILY
ferrous sulfate 325 mg (65 mg iron) Tablet
325 mg PO DAILY
Discharge Orders:
Discharge Patient (As Directed); Ordered 04/30/24
Ordered By: José Trammell
Discharge Date and Time
Print Language: BOLIVIAN
[2024-04-30 10:34] VITALS: BP 140/79
--- NOTE | 2024-04-30 10:56 | CM ---
Met with patient at bedside to discuss discharge plan
Reported he is driving self home
Waiting for note from Attending
Plan: Discharge to home; no needs
[2024-04-30 11:22] LABS: Glucose - Point of Care 140 mg/dl (70-99)
== END 2024-04-30 11:44 | disposition home or self-care (01) | DRG 378 ==
LOC: 3 WEST ACU 12:36
PROVIDERS: ADMITTING PHYSICIAN Internal Medicine; CONSULT PHYSICIAN Internal Medicine; EMERGENCY PHYSICIAN Emergency Medicine; FAMILY PHYSICIAN Family Medicine
PROC: 30233N1 Transfusion of Nonautologous Red Blood Cells into Peripheral Vein, Percutaneous Approach (ICD-10-PCS; 2024-04-28)
PROC: 0DBK8ZX Excision of Ascending Colon, Via Natural or Artificial Opening Endoscopic, Diagnostic (ICD-10-PCS; 2024-04-29)
DX: K57.31 Diverticulosis of large intestine without perforation or abscess with bleeding (principal); D62 Acute posthemorrhagic anemia; E87.6 Hypokalemia; E78.5 Hyperlipidemia, unspecified; E11.40 Type 2 diabetes mellitus with diabetic neuropathy, unspecified; M19.90 Unspecified osteoarthritis, unspecified site; D12.2 Benign neoplasm of ascending colon; I10 Essential (primary) hypertension
CPT/HCPCS: 88305; 74174; 74177; 80053; 82607; 82728; 82746; 82962; 83036; 83540; 83550; 83615; 83735; 85014; 85018; 85025; 85045; 85610; 85730; 86803; 86850; 86900; 86901; 86920; 87045; 87046; 87324; 87427; 87449; 89055; 96360; 99285; J2916; P9016; Q9967

== ENCOUNTER → 2024-06-18 09:58 | Outpatient (REF) | payer BC, SELFPAY ==
[2024-06-18 11:59] LABS: % Basophils 0.5 % (0-2); % Eosinophils 3.9 % (0-6); % Immature Granulocytes 0.2 % (0-0.5); % Lymphocytes 22.1 % (20.5-51.1); % Monocytes 9.7 % (1.7-9.3); % Neutrophils 63.6 % (42.2-75.2); Absolute Eosinophils 0.2 10^3/uL (0-0.7); Absolute Lymphocytes 1.3 10^3/uL (1.2-3.4); Absolute Monocytes 0.6 10^3/uL (0.1-0.6); Absolute Neutrophils 3.7 10^3/uL (1.4-6.5); Hematocrit 36.6 % (39.0-52.0); Hemoglobin 11.5 g/dL (13.0-18.0); Mean Corp Hgb Conc. 31.4 g/dL (33.0-37.0); Mean Corpuscular Hgb 24.2 pg (27.0-31.0); Mean Corpuscular Volume 77.1 fL (80.0-94.0); Mean Platelet Volume 11.3 fL (7.4-10.4); Nucleated Red Blood Cells % 0 % (-); Platelet Count 292 10^3/uL (130-400); Red Blood Cell Count 4.75 10^6/uL (4.70-6.10); Red Cell Dist. Width 15.3 % (11.5-14.5); White Blood Cell Count 5.9 10^3/uL (4.8-10.8)
[2024-06-18 14:13] LABS: Absolute Neutrophils -Man Diff 3.5 10^3/uL (1.4-6.5); Band Neutrophils 0 % (0-3); Eosinophils 3 % (0-6); Lymphocytes 25 % (20-51); Monocytes 11 % (2-9); Segmented Neutrophils 61 % (42-75); Total Cells Counted 100
[2024-06-18 14:14] LABS: Platelets Checked Yes
[2024-06-18 14:15] LABS: Anisocytosis 1+; Hypochromasia 1+; Normal RBC Morphology No; Ovalocytes 1+; Target Cells Occasional
== END ==
LOC: REG 09:58
PROVIDERS: ATTENDING PHYSICIAN Specialist; FAMILY PHYSICIAN Family Medicine
DX: Z01.818 Encounter for other preprocedural examination (principal)
CPT/HCPCS: 36415; 85025